=== PATIENT | female | born 1970 | race African-American/Black ===

== ENCOUNTER 2022-12-06 22:24 | Emergency (ER) | payer SELFPAY ==
[~2022-12-06] VITALS: Ht 149.9 cm; Wt 61.0 kg
[2022-12-06 22:54] VITALS: O2SAT 100
[2022-12-07 00:21] LABS: HEMATOCRIT 39.4 % (36.0-48.0); MEAN CORPUSCULAR HEMOGLOBIN 30.8 pg (28.0-32.0); MEAN CORPUSCULAR VOLUME 93.3 fL (81.0-99.0); PLATELET 247 x1000/uL (130-400); RED BLOOD CELL COUNT 4.22 mill/uL (4.2-5.4); RED CELL DISTRIBUTION WIDTH 12.7 % (11.6-14.6); WHITE BLOOD COUNT 5.8 x1000/uL (4.5-11.0)
[2022-12-07 00:58] LABS: CHLORIDE 105 mEq/L (98-107); INDEX HEMOLYSI 1 (1-3); INDEX ICTERIC 1 (1-4); INDEX LIPEMIC 1 (1-3); POTASSIUM 3.7 mEq/L (3.5-5.1); SODIUM 140 mEq/L (136-145)
[2022-12-07 01:00] LABS: CALCIUM 9.8 mg/dL (8.5-10.1)
[2022-12-07 01:03] LABS: CARBON DIOXIDE 27 mEq/L (21-32); CREATININE 0.9 mg/dL (0.6-1.3); GLUCOSE 118 mg/dL (70-105); UREA NITROGEN BLOOD 16 mg/dL (7-21)
[2022-12-07] MEDS ORDERED: AMLO5TAB4 MT (01:24)
[2022-12-07 02:08] VITALS: BP 126/71; PULSE 102; RESP 14; TEMP 98.3
== END 2022-12-07 02:10 | disposition home or self-care (01) ==
LOC: ER 22:24
DX: Z00.00 Encounter for general adult medical examination without abnormal findings (principal); I10 Essential (primary) hypertension
CPT/HCPCS: 36415; 80048; 85027; 99283